=== PATIENT | male | born 1965 | race Hispanic/Latino ===

== ENCOUNTER → 2017-12-11 | Outpatient (CLI) | payer BC | END | disposition home or self-care (01) | LOC: SLP 20:39 | PROVIDERS: ATTEND Family Medicine | DX: G47.33 Obstructive sleep apnea (adult) (pediatric) (principal) | CPT/HCPCS: 95810 ==

== ENCOUNTER → 2017-12-19 | Outpatient (CLI) | payer BC | LOC: EDUNIT# 20:30 → SLP 20:42 | PROVIDERS: ATTEND Family Medicine | DX: G47.33 Obstructive sleep apnea (adult) (pediatric) (principal) | CPT/HCPCS: 95811 ==